=== PATIENT | female | born 1955 | race Caucasian/White ===

== ENCOUNTER 2021-06-15 12:25 | Outpatient (REF) | payer MEDICARE, OTHER, SELFPAY ==
--- NOTE | 2021-06-15 13:48 | MHC.AU.ANR ---
Adult Audiological Evaluation Date of Visit: 06/15/21 Reason for Appointment: Audiological evaluation due to concern for decreased hearing. Ms. Corrales reports a longstanding history of hearing difficulties. 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 She notes that she noticed a sudden decrease in her hearing in March 2021, along with feelings of pressure and fullness in her ears. She states that her dog had barked next to her ear and soon after she noticed the decrease, but isn't sure if they're related. Does patient feel they have a hearing loss?: Yes If Yes, Which Ear?: Both Ears When Was Hearing Difficulty First Noticed?: Has hearing been tested previously?: Yes Previous Hearing Test Results: Many years ago when diagnosed with otosclerosis, records not available Hearing Handicap Inventory: HHIE SCORE: 30 Based on HHIE score, patient has: Severe perceived hearing handicap Ear History: Previous Ear Surgery: Stapedectomy in the left ear, Blocked/Full Sensation in Ear(s): Both Ears Medical History: Medical History: High Blood Pressure, Measles, Mumps, Tobacco Use Allergies: Seasonal, dust, pets, penicillin Medication List: Flovent inhaler, serevent diskos inhaler, amlodipine 2.5 mg, Escitalopram 5 mg, allertec (off brand Zyrtec) Otoscopy: Right Ear: Unremarkable Left Ear: Unremarkable Tympanometry: Tympanometry performed due to: History of Otosclerosis Right Ear: Hypercompliant Middle Ear System (Type Ad) Left Ear: Hypercompliant Middle Ear System (Type Ad) Hearing Evaluation: Transducer(s) Used: Insert Earphones, Bone Conduction Method: Conventional Audiometry Stimuli Used: Pure Tones Right Ear: Description of Hearing: Moderate conductive hearing loss at 250 Hz, rising to normal hearing at 500 Hz, then sloping to a mild sensorineural hearing loss at 750 Hz, mild conductive hearing loss at 1000 Hz, moderately-severe to severe sensorineural hearing loss at 9866-1957 Hz, severe mixed hearing loss 5574-5998 Hz, and a severe hearing loss 4116-7535 Hz. Left Ear: Description of Hearing: Moderate conductive hearing loss at 250 Hz, rising to a mild conductive hearing loss at 500 Hz and normal hearing from 750-1000 Hz, then sloping to a moderate to severe sensorineural hearing loss from 4847-0208 Hz, a moderately-severe mixed hearing loss at 4000 Hz, and moderately-severe hearing loss 0217-3665 Hz. Speech Recognition Threshold (SRT): Method Used: Monitored Live Voice Stimuli Used: Spondee Words Right Ear: 35 dBHL Left Ear: 25 dBHL Word Discrimination: Method: Recorded Lists Word Lists Used: NU-6 Right Ear: 48% at 90 dBHL Left Ear: 64% at 75 dBHL Most Comfortable Level (MCL): Right Ear: 85 dBHL Left Ear: 75 dBHL Recommendations: Audiological re-evaluation in one year. Trial with amplification is recommended. Referral to Ear, Nose, and Throat is recommended due to asymmetric mixed hearing loss and middle-ear dysfunction. Discussed hearing aids with patient briefly. Recommended she have a consultation with ENT and then return for a hearing aid consultation further discuss hearing aid options. Diagnosis: Primary Diagnosis: H90.6 Mixed Hearing Loss, Bilateral Secondary Diagnosis: H69.93 Unspecified Eustachian Tube Dysfunction, Bilateral Services Performed: Services Performed: Comprehensive Audiological Evaluation (CPT 83783) Tympanometry (CPT 64458) Signature: Provider: Corona Briceño, CCC-A
== END 2021-06-15 12:26 | disposition home or self-care (01) ==
LOC: HO.SH 12:25
PROVIDERS: Visit Provider Internal Medicine
DX: H90.6 Mixed conductive and sensorineural hearing loss, bilateral (principal); H69.93 Unspecified Eustachian tube disorder, bilateral
CPT/HCPCS: 92557; 92567